=== PATIENT | female | born 1995 | race Two or more races ===

== ENCOUNTER 2022-12-07 17:49 | Emergency (ER) | payer OTHER ==
[~2022-12-07] VITALS: Ht 165.1 cm; Wt 99.8 kg
== END 2022-12-07 22:16 | disposition home or self-care (01) ==
LOC: ER 17:49
DX: B34.9 Viral infection, unspecified (principal); Z20.822 Contact with and (suspected) exposure to COVID-19

== ENCOUNTER 2023-02-16 21:55 | Emergency (ER) | payer OTHER ==
[~2023-02-16] VITALS: Ht 165.1 cm; Wt 99.8 kg
[2023-02-16] MEDS ORDERED: ZYRTEC10 M3 PO (23:30)
[2023-02-16] MEDS ORDERED: FLONASE ALLERG9.9 ML NASAL (23:30)
[2023-02-16] MEDS ORDERED: MUCINEX DM ER1 EAC1 PO (23:30)
[2023-02-16] MEDS ORDERED: ZITHROMAX500 MG PO (23:30)
[2023-02-16] MEDS ORDERED: SINUS RINSE ST1 EACH NASAL (23:30)
== END 2023-02-16 23:37 | disposition home or self-care (01) ==
LOC: ER 21:55
DX: J32.1 Chronic frontal sinusitis (principal)

== ENCOUNTER 2023-03-05 15:28 | Emergency (ER) | payer OTHER ==
[~2023-03-05] VITALS: Ht 165.1 cm; Wt 99.8 kg
[~2023-03-05 15:28] MED LIST: FLONASE ALLERG9.9 ML NASAL; MUCINEX DM ER1 EAC1 PO; SINUS RINSE ST1 EACH NASAL; ZITHROMAX500 MG PO; ZYRTEC10 M3 PO
== END 2023-03-05 16:55 | disposition home or self-care (01) ==
LOC: ER 15:28
DX: R20.2 Paresthesia of skin (principal)

== ENCOUNTER 2023-03-06 11:12 | Emergency (ER) | payer OTHER ==
[~2023-03-06] VITALS: Ht 165.1 cm; Wt 99.8 kg
== END 2023-03-06 12:07 | disposition home or self-care (01) ==
LOC: ER 11:12
DX: M54.2 Cervicalgia (principal)

== ENCOUNTER 2023-05-15 00:35 | Emergency (ER) | payer OTHER ==
[~2023-05-15] VITALS: Ht 165.1 cm; Wt 99.8 kg
[~2023-05-15 00:35] MED LIST changes: +DUI500 PO
[2023-05-15] MEDS ORDERED: MELOXICAM15 MG PO (04:22)
[2023-05-15] MEDS ORDERED: PEPCID40 MG PO (04:22)
[2023-05-15] MEDS ORDERED: NORFLEX100MG PO (04:22)
== END 2023-05-15 05:16 ==
LOC: ER 00:35
DX: M79.603 Pain in arm, unspecified (principal); R07.9 Chest pain, unspecified

== ENCOUNTER 2023-05-21 19:38 | Emergency (ER) | payer OTHER ==
[~2023-05-21] VITALS: Ht 165.1 cm; Wt 1008.3 kg
[~2023-05-21 19:38] MED LIST changes: +MELOXICAM15 MG PO; +NORFLEX100MG PO; +PEPCID40 MG PO
[2023-05-21 20:46] LABS: HEMATOCRIT 35.9 % (36.0-45.00); HEMOGLOBIN 11.5 g/dL (12.0-15.00); MEAN CELL VOLUME 79.3 fL (80.00-100.00); MEAN CORPUSCULAR HEMOGLOBIN 25.4 pg (27.00-32.0); MEAN CORPUSCULAR HGB CONC 32.1 g/dl (32.0-36.0); PLATELET COUNT 304 K/uL (150-450); RED BLOOD COUNT 4.53 M/uL (4.00-6.00); RED CELL DISTRIBUTION WIDTH 15.1 % (11.5-14.5)
[2023-05-21 21:03] LABS: INR 1.01; PARTIAL THROMBOPLASTIN TIME 25.9 SECONDS (22.0-34.0); PROTHROMBIN TIME 10.6 SECONDS (9.0-11.5)
[2023-05-21 21:04] LABS: CALCIUM 8.8 mg/dL (8.5-10.1); CREATININE SERUM 0.79 mg/dL (0.55-1.02); GFR 86.04; POTASSIUM 3.98 mEq/L (3.5-5.1)
[2023-05-21 21:17] LABS: URINE APPEARANCE Turbid; URINE BILIRRUBIN Small (NEGATIVE); URINE BLOOD Large; URINE COLOR Orange; URINE GLUCOSE Negative (NEGATIVE); URINE LEUKOCYTE Small; URINE NITRATE Negative; URINE PROTEIN 30 (NEGATIVE); URINE UROBILINOGEN 0.2 E.U./dl
[2023-05-21 21:18] LABS: URINE BACTERIA 1108.7 uL (0.0-1933); URINE WBC 188.5 uL (0.0-23.2)
[2023-05-21 21:23] LABS: URINE RBC > 10558.9 uL (0.0-20.8)
[2023-05-21] MEDS ORDERED: PYRIDIUM100 MG PO (22:33)
[2023-05-21] MEDS ORDERED: CEPHALEXIN500 MG PO (22:33)
[2023-05-21] MEDS ORDERED: DUI500 PO ×2 (22:35→22:36)
== END 2023-05-21 22:49 | disposition home or self-care (01) ==
LOC: ER 19:38
PROVIDERS: Nurse Practitioner Family
DX: N39.0 Urinary tract infection, site not specified (principal); R10.2 Pelvic and perineal pain; N93.8 Other specified abnormal uterine and vaginal bleeding

== ENCOUNTER 2023-08-20 16:01 | Emergency (ER) | payer OTHER ==
[~2023-08-20] VITALS: Ht 167.6 cm; Wt 81.6 kg
[~2023-08-20 16:01] MED LIST changes: +CEPHALEXIN500 MG PO; +PYRIDIUM100 MG PO
[2023-08-20 20:34] LABS: URINE APPEARANCE Clear; URINE BILIRRUBIN Negative (NEGATIVE); URINE BLOOD Negative; URINE COLOR Yellow; URINE GLUCOSE Negative (NEGATIVE); URINE LEUKOCYTE Moderate; URINE NITRATE Negative; URINE PROTEIN Negative (NEGATIVE); URINE UROBILINOGEN 0.2 E.U./dl
[2023-08-20 20:35] LABS: URINE BACTERIA 4147.8 uL (0.0-1933); URINE EPITHELIAL CELLS 42.5 uL (0.0-38.8); URINE RBC 3.4 uL (0.0-20.8); URINE WBC 244.5 uL (0.0-23.2)
[2023-08-20 20:36] LABS: HEMATOCRIT 36.1 % (36.0-45.00); MEAN CELL VOLUME 78.3 fL (80.00-100.00); MEAN CORPUSCULAR HGB CONC 33.3 g/dl (32.0-36.0); PLATELET COUNT 329 K/uL (150-450); RED BLOOD COUNT 4.61 M/uL (4.00-6.00); RED CELL DISTRIBUTION WIDTH 15.8 % (11.5-14.5)
[2023-08-20 20:48] LABS: URINE MUCUS MODERATE
[2023-08-20] MEDS ORDERED: BACTRIM DS TAB1 EACH PO (21:01)
== END 2023-08-20 21:30 | disposition home or self-care (01) ==
LOC: ER 16:03
PROVIDERS: Emergency Medicine
DX: N39.0 Urinary tract infection, site not specified (principal); Z20.822 Contact with and (suspected) exposure to COVID-19

== ENCOUNTER 2023-10-13 12:23 | Emergency (ER) | payer OTHER ==
[~2023-10-13] VITALS: Ht 165.1 cm; Wt 99.8 kg
[~2023-10-13 12:23] MED LIST changes: +BACTRIM DS TAB1 EACH PO
== END 2023-10-13 16:02 | disposition home or self-care (01) ==
LOC: ER 12:24
DX: J06.9 Acute upper respiratory infection, unspecified (principal); Z20.822 Contact with and (suspected) exposure to COVID-19

== ENCOUNTER 2024-04-13 18:52 | Emergency (ER) | payer OTHER ==
[~2024-04-13] VITALS: Ht 165.1 cm; Wt 99.8 kg
[2024-04-13] MEDS ORDERED: KETOROLAC TROMETHAMINE 30 MG VIAL IM STA (21:47)
[2024-04-13] MEDS ORDERED: DEXAMETHASONE SODIUM PHOSPHATE 4 MG/ML VIAL IM STA (21:48)
[2024-04-13] MEDS ORDERED: MEDROLPACK PO (21:52)
[2024-04-13] MEDS ORDERED: DICLOFENAC POTA50 MG PO (21:52)
[2024-04-13] MEDS ORDERED: NASAL MIST126 ML NASAL (21:52)
[2024-04-13] MEDS ORDERED: KETOROLAC TROMETHAMINE 30 MG VIAL ONE (21:56)
[2024-04-13] MEDS ORDERED: DEXAMETHASONE SODIUM PHOSPHATE 4 MG/ML VIAL ONE (21:56)
== END 2024-04-13 22:03 | disposition home or self-care (01) ==
LOC: ER 18:54
DX: M25.561 Pain in right knee (principal)

== ENCOUNTER 2024-05-23 00:48 | Emergency (ER) | payer OTHER ==
[~2024-05-23] VITALS: Ht 165.1 cm; Wt 59.0 kg
[~2024-05-23 00:48] MED LIST changes: +DICLOFENAC POTA50 MG PO; +MEDROLPACK PO; +NASAL MIST126 ML NASAL
[2024-05-23] MEDS ORDERED: 0.9 % SODIUM CHLORIDE 1,000 ML IV SCH (02:00)
[2024-05-23] MEDS ORDERED: KETOROLAC TROMETHAMINE 30 MG VIAL IV ONE (02:00)
[2024-05-23 02:33] LABS: PH,URINE 5.5 (5.0-8.0); URINE APPEARANCE Cloudy; URINE BILIRRUBIN Negative (NEGATIVE); URINE BLOOD Negative; URINE COLOR Yellow; URINE GLUCOSE Negative (NEGATIVE); URINE KETONE Negative (NEGATIVE); URINE LEUKOCYTE Trace; URINE NITRATE Negative; URINE PROTEIN Trace (NEGATIVE)
[2024-05-23 02:34] LABS: HEMOGLOBIN 11.3 g/dL (12.0-15.00); MEAN CELL VOLUME 79.6 fL (80.00-100.00); MEAN CORPUSCULAR HEMOGLOBIN 26.5 pg (27.00-32.0); MEAN CORPUSCULAR HGB CONC 33.3 g/dl (32.0-36.0); PLATELET COUNT 295 K/uL (150-450); RED BLOOD COUNT 4.28 M/uL (4.00-6.00); RED CELL DISTRIBUTION WIDTH 15.2 % (11.5-14.5)
[2024-05-23 02:36] LABS: URINE BACTERIA 3070.3 uL (0.0-1933); URINE EPITHELIAL CELLS 57.9 uL (0.0-38.8); URINE RBC 7.4 uL (0.0-20.8); URINE WBC 153.9 uL (0.0-23.2)
[2024-05-23 02:46] LABS: ALBUMIN 3.6 gm/dL (3.4-5.0); BILIRUBIN TOTAL 0.21 mg/dL (0.3-1.2); CREATININE SERUM 0.7 mg/dL (0.55-1.02); GFR 98.25; GLOBULINA 3.2 G/DL (2.4-3.5); POTASSIUM 4.69 mEq/L (3.5-5.1); TOTAL PROTEIN 6.8 gm/dL (6.4-8.2)
[2024-05-23 02:53] LABS: URINE CAST 1.06 uL (0.0-1.40)
[2024-05-23] MEDS ORDERED: CEFTRIAXONE SODIUM 1,000 MG VIAL IV ONE (05:15)
[2024-05-23] MEDS ORDERED: BACTRIM DS TAB1 EACH PO (05:17)
== END 2024-05-23 05:34 | disposition home or self-care (01) ==
LOC: ER 00:50
PROVIDERS: General Practice
DX: N39.0 Urinary tract infection, site not specified (principal); R10.31 Right lower quadrant pain

== ENCOUNTER 2024-05-25 14:19 | Emergency (ER) | payer OTHER ==
[~2024-05-25] VITALS: Ht 165.1 cm; Wt 104.3 kg
[2024-05-25] MEDS ORDERED: GUAIFENESIN/DEXTROMETHORPHAN 10ML BLIST.PACK PO STA (16:14)
[2024-05-25] MEDS ORDERED: DEXAMETHASONE SODIUM PHOSPHATE 4 MG/ML VIAL IM STA (16:14)
[2024-05-25] MEDS ORDERED: CETIRIZINE HCL 5 MG/5 ML ML PO STA (16:15)
[2024-05-25 16:48] LABS: HEMATOCRIT 35.3 % (36.0-45.00); HEMOGLOBIN 11.8 g/dL (12.0-15.00); MEAN CELL VOLUME 77.9 fL (80.00-100.00); MEAN CORPUSCULAR HGB CONC 33.4 g/dl (32.0-36.0); PLATELET COUNT 269 K/uL (150-450); RED BLOOD COUNT 4.52 M/uL (4.00-6.00); RED CELL DISTRIBUTION WIDTH 15.2 % (11.5-14.5)
[2024-05-25] MEDS ORDERED: MUCINEX DM ER1 EACH PO (19:15)
[2024-05-25] MEDS ORDERED: SINGULAIR10 MG PO (19:15)
[2024-05-25] MEDS ORDERED: ZYRTEC10 MG PO (19:15)
== END 2024-05-25 19:28 | disposition home or self-care (01) ==
LOC: ER 14:21
PROVIDERS: General Practice
DX: J06.9 Acute upper respiratory infection, unspecified (principal); Z20.822 Contact with and (suspected) exposure to COVID-19

== ENCOUNTER 2024-07-22 13:19 | Emergency (ER) | payer OTHER ==
[~2024-07-22] VITALS: Ht 165.1 cm; Wt 99.8 kg
[~2024-07-22 13:19] MED LIST changes: +MUCINEX DM ER1 EACH PO; +SINGULAIR10 MG PO; +ZYRTEC10 MG PO
[2024-07-22] MEDS ORDERED: MONTELUKAST SODI4 M1 PO (13:45)
[2024-07-22] MEDS ORDERED: BENZONATATE200 M1 PO (13:45)
[2024-07-22] MEDS ORDERED: PEPCID AC20 MG PO (13:45)
[2024-07-22] MEDS ORDERED: MEDROLPACK PO (13:45)
[2024-07-22] MEDS ORDERED: ZITHROMAX500 MG PO (13:45)
[2024-07-22] MEDS ORDERED: LEVALBUTER0.63 MG/3 IH (13:45)
== END 2024-07-22 14:18 | disposition home or self-care (01) ==
LOC: ER 13:21
DX: R53.81 Other malaise (principal); J00 Acute nasopharyngitis [common cold]

== ENCOUNTER 2024-10-19 03:25 | Emergency (ER) | payer OTHER ==
[~2024-10-19] VITALS: Ht 165.1 cm; Wt 108.9 kg
[~2024-10-19 03:25] MED LIST changes: +BENZONATATE200 M1 PO; +LEVALBUTER0.63 MG/3 IH; +MONTELUKAST SODI4 M1 PO; +PEPCID AC20 MG PO
[2024-10-19] MEDS ORDERED: METOCLOPRAMIDE HCL 5 MG/ML VIAL IM STA (04:10)
[2024-10-19] MEDS ORDERED: PROMETHAZINE HCL 25 MG/ML AMPUL IM STA (04:11)
[2024-10-19] MEDS ORDERED: FAMOtidine 10 MG/ML (4ML VIAL) IV PUSH STA (04:12)
[2024-10-19] MEDS ORDERED: 0.9 % SODIUM CHLORIDE 1,000 ML IV STA (04:12)
[2024-10-19] MEDS ORDERED: DIPHENOXYLATE HCL/ATROPINE 1 UDTAB TABLET PO STA (04:13)
[2024-10-19 04:43] LABS: HEMATOCRIT 39.4 % (36.0-45.00); MEAN CELL VOLUME 78.4 fL (80.00-100.00); MEAN CORPUSCULAR HEMOGLOBIN 25.8 pg (27.00-32.0); MEAN CORPUSCULAR HGB CONC 32.9 g/dl (32.0-36.0); PLATELET COUNT 280 K/uL (150-450); RED BLOOD COUNT 5.03 M/uL (4.00-6.00); RED CELL DISTRIBUTION WIDTH 15.2 % (11.5-14.5)
[2024-10-19] MEDS ORDERED: ONDANSETRON HCL 2 MG/ML VIAL IV STA (05:31)
[2024-10-19 06:31] LABS: CALCIUM 8.8 mg/dL (8.5-10.1); CREATININE SERUM 0.79 mg/dL (0.55-1.02); GFR 85.45
[2024-10-19 06:32] LABS: POTASSIUM 4.98 mEq/L (3.5-5.1)
== END 2024-10-19 07:40 | disposition home or self-care (01) ==
LOC: ER 03:25
DX: K52.9 Noninfective gastroenteritis and colitis, unspecified (principal)

== ENCOUNTER 2024-11-18 18:57 | Emergency (ER) | payer OTHER ==
[~2024-11-18] VITALS: Ht 165.1 cm; Wt 104.3 kg
[2024-11-18] MEDS ORDERED: NEURONTIN300 MG PO (22:13)
[2024-11-18] MEDS ORDERED: ORPHENADRINE CITRATE 30 MG/ML AMPUL IM ONE (22:15)
[2024-11-18] MEDS ORDERED: KETOROLAC TROMETHAMINE 60 MG VIAL IM ONE ×2 (22:15→22:18)
[2024-11-18] MEDS ORDERED: ORPHENADRINE CITRATE 30 MG/ML AMPUL ONE (22:18)
== END 2024-11-18 22:31 | disposition home or self-care (01) ==
LOC: ER 18:58
DX: M25.512 Pain in left shoulder (principal); J45.909 Unspecified asthma, uncomplicated
CPT/HCPCS: 72125; 96372; 99284; J1885; J2360

== ENCOUNTER 2025-01-20 00:07 | Emergency (ER) | payer OTHER ==
[~2025-01-20] VITALS: Ht 165.1 cm; Wt 108.9 kg
[~2025-01-20 00:07] MED LIST changes: +NEURONTIN300 MG PO
[2025-01-20] MEDS ORDERED: DIPHENHYDRAMINE HCL 12.5 MG/5 ML BLIST.PACK PO STA (02:29)
[2025-01-20] MEDS ORDERED: GUAIFENESIN 200 MG/10 ML BLIST.PACK PO STA (02:29)
[2025-01-20] MEDS ORDERED: ACETAMINOPHEN 500 MG GEL..CAP PO STA (02:29)
[2025-01-20] MEDS ORDERED: DIPHENHYDRAMINE HCL 12.5 MG/5 ML BLIST.PACK PO ONE (02:36)
[2025-01-20] MEDS ORDERED: ACETAMINOPHEN 500 MG GEL..CAP PO ONE (02:36)
[2025-01-20] MEDS ORDERED: GUAIFENESIN 200 MG/10 ML BLIST.PACK PO ONE (02:37)
[2025-01-20 03:08] LABS: BASO % 0.6 % (0.1-1.2); EOS # 0.31 (0.04-0.54); EOS % 3.9 % (0.7-7.0); HEMATOCRIT 34.5 % (34.1-44.9); HEMOGLOBIN 11.2 g/dL (11.2-15.7); LYMPH # 2.89 (1.18-3.74); LYMPH % 35.9 % (19.3-53.1); MEAN CORPUSCULAR HEMOGLOBIN 25.5 pg (25.6-32.2); MONO # 1.04 (0.24-0.82); NEUT # 3.75 (1.56-6.13); NEUT % 46.6 % (34.0-71.1); PLATELET COUNT 274 K/uL (163-369); RED BLOOD COUNT 4.39 M/uL (3.93-5.22); RED CELL DISTRIBUTION WIDTH 14.2 % (11.6-14.4)
[2025-01-20 03:15] LABS: MONO % 12.9 % (4.7-12.5)
[2025-01-20 03:47] LABS: COVID-19 AG NEGATIVE (NEGATIVE); INFLUENZA A AG NEGATIVE (NEGATIVE); INFLUENZA B AG NEGATIVE (NEGATIVE)
[2025-01-20] MEDS ORDERED: DOLOGESIC-DF 51 EACH PO (04:46)
[2025-01-20] MEDS ORDERED: PHENAGIL TABLE1 EACH PO (04:46)
[2025-01-20] MEDS ORDERED: ZYNCOF 20-400120 ML PO (04:46)
== END 2025-01-20 04:52 ==
LOC: ER 00:19
PROVIDERS: General Practice
DX: B34.9 Viral infection, unspecified (principal); Z20.822 Contact with and (suspected) exposure to COVID-19

== ENCOUNTER 2025-04-04 18:31 | Emergency (ER) | payer OTHER ==
[~2025-04-04] VITALS: Ht 165.1 cm; Wt 104.3 kg
[~2025-04-04 18:31] MED LIST changes: +DOLOGESIC-DF 51 EACH PO; +PHENAGIL TABLE1 EACH PO; +ZYNCOF 20-400120 ML PO
[2025-04-04] MEDS ORDERED: BUTALB/ACETAMINOPHEN/CAFFEINE 1 TAB TABLET PO ONE (20:30)
[2025-04-04 20:41] LABS: BASO % 0.3 % (0.1-1.2); EOS # 0.21 (0.04-0.54); EOS % 2.3 % (0.7-7.0); LYMPH # 3.27 (1.18-3.74); LYMPH % 35.8 % (19.3-53.1); MEAN PLATELET VOLUME 9.70 fl (9.4-12.4); MONO # 0.73 (0.24-0.82); MONO % 8.0 % (4.7-12.5); NEUT # 4.88 (1.56-6.13); NEUT % 53.5 % (34.0-71.1); RED CELL DISTRIBUTION WIDTH 14.5 % (11.6-14.4)
[2025-04-04 21:14] LABS: BUN CREA RATIO 12.0 (7.0-25.0); CREATININE SERUM 0.76 mg/dL (0.55-1.02); GFR 88.76; GLUCOSE FASTING 92.0 mg/dL (65-100); OSMOLALITY SERUM 283.0 MOSM/KG (275-295)
[2025-04-04 21:31] LABS: COVID-19 AG NEGATIVE (NEGATIVE)
== END 2025-04-04 22:52 | disposition home or self-care (01) ==
LOC: ER 18:31
PROVIDERS: Emergency Medicine
DX: B34.9 Viral infection, unspecified (principal); R51.9 Headache, unspecified; R53.1 Weakness; Z20.822 Contact with and (suspected) exposure to COVID-19

== ENCOUNTER 2025-04-25 09:32 | Emergency (ER) | payer OTHER ==
[~2025-04-25] VITALS: Ht 165.1 cm; Wt 113.4 kg
[2025-04-25] MEDS ORDERED: KETOROLAC TROMETHAMINE 60 MG VIAL IM ONE (10:45)
[2025-04-25] MEDS ORDERED: ORPHENADRINE CITRATE 30 MG/ML AMPUL IM ONE (10:45)
== END 2025-04-25 12:12 ==
LOC: ER 09:32
DX: M62.838 Other muscle spasm (principal)

== ENCOUNTER → 2025-06-13 | Emergency (ER) | payer OTHER ==
[~2025-06-13] MED LIST changes: +CIPRO500 MG PO
== END | disposition home or self-care (01) ==
LOC: ER 19:04
DX: R10.21 Pelvic and perineal pain right side (principal); N39.0 Urinary tract infection, site not specified; Z20.822 Contact with and (suspected) exposure to COVID-19

== ENCOUNTER 2025-06-14 21:29 | Emergency (ER) | payer OTHER ==
[~2025-06-14] VITALS: Ht 165.1 cm; Wt 108.9 kg
[~2025-06-14 21:29] MED LIST changes: -CIPRO500 MG PO
[2025-06-14] MEDS ORDERED: ONDANSETRON HCL 2 MG/ML VIAL IV ONE (22:30)
[2025-06-14] MEDS ORDERED: KETOROLAC TROMETHAMINE 30 MG VIAL IV ONE (22:30)
[2025-06-14] MEDS ORDERED: DEXAMETHASONE SODIUM PHOSPHATE 4 MG/ML VIAL IV ONE (22:30)
[2025-06-14] MEDS ORDERED: 0.9 % SODIUM CHLORIDE 500 ML IV SCH (22:30)
[2025-06-14] MEDS ORDERED: FAMOTIDINE/PF 20 MG/2 ML VIAL IV ONE (22:30)
[2025-06-14] MEDS ORDERED: DEXAMETHASONE SODIUM PHOSPHATE 4 MG/ML VIAL ONE (23:25)
[2025-06-14] MEDS ORDERED: ONDANSETRON HCL 2 MG/ML VIAL ONE (23:25)
[2025-06-14] MEDS ORDERED: FAMOTIDINE/PF 20 MG/2 ML VIAL ONE (23:25)
[2025-06-14] MEDS ORDERED: KETOROLAC TROMETHAMINE 30 MG VIAL ONE (23:25)
[2025-06-14 23:44] LABS: URINE APPEARANCE Cloudy; URINE BILIRRUBIN Negative (NEGATIVE); URINE BLOOD Negative; URINE COLOR Yellow; URINE GLUCOSE Negative (NEGATIVE); URINE KETONE Trace (NEGATIVE); URINE LEUKOCYTE Moderate; URINE NITRATE Negative; URINE PROTEIN Trace (NEGATIVE); URINE UROBILINOGEN 1.0 E.U./dl
[2025-06-14 23:47] LABS: URINE BACTERIA 3027.4 uL (0.0-1933); URINE EPITHELIAL CELLS 83.3 uL (0.0-38.8); URINE RBC 3.2 uL (0.0-20.8); URINE WBC 124.4 uL (0.0-23.2)
[2025-06-14 23:59] LABS: URINE CAST 0.14 uL (0.0-1.40)
[2025-06-15 00:32] LABS: BASO % 0.3 % (0.1-1.2); EOS # 0.15 (0.04-0.54); EOS % 1.5 % (0.7-7.0); LYMPH # 3.55 (1.18-3.74); LYMPH % 36.0 % (19.3-53.1); MEAN PLATELET VOLUME 10.10 fl (9.4-12.4); MONO # 0.88 (0.24-0.82); MONO % 8.9 % (4.7-12.5); NEUT # 5.23 (1.56-6.13); NEUT % 53.1 % (34.0-71.1); RED CELL DISTRIBUTION WIDTH 14.0 % (11.6-14.4)
[2025-06-15 00:38] LABS: ERYTHROCYTE SEDIMENTATION RATE 16 mm/hr (0-20)
[2025-06-15 01:35] LABS: INR 0.97
[2025-06-15 01:40] LABS: ALT/SGPT 31.0 U/L (12-78); AST/SGOT 22.0 U/L (15-37); BILIRUBIN TOTAL 0.19 mg/dL (0.3-1.2); BUN CREA RATIO 19.0 (7.0-25.0); CREATININE SERUM 0.58 mg/dL (0.55-1.02); GFR 121.25; GLOBULINA 3.4 G/DL (2.4-3.5); GLUCOSE FASTING 99.0 mg/dL (65-100); OSMOLALITY SERUM 284.0 MOSM/KG (275-295)
[2025-06-15] MEDS ORDERED: CIPRO500 MG PO (05:26)
[2025-06-15] MEDS ORDERED: DOLOGESIC-DF 51 EACH PO ×2 (05:28)
[2025-06-15] MEDS ORDERED: KETOROLAC TROMETHAMINE 30 MG VIAL IV STA (05:31)
[2025-06-15] MEDS ORDERED: CEFTRIAXONE SODIUM 1,000 MG VIAL IV STA (05:31)
[2025-06-15] MEDS ORDERED: KETOROLAC TROMETHAMINE 30 MG VIAL ONE (05:31)
[2025-06-15] MEDS ORDERED: CEFTRIAXONE SODIUM 1,000 MG VIAL ONE (05:32)
[2025-06-15 05:45] VITALS: BP 110/75; O2SAT 98
== END 2025-06-15 05:47 ==
LOC: ER 21:29
DX: N39.0 Urinary tract infection, site not specified (principal)

== ENCOUNTER 2025-07-13 13:15 | Emergency (ER) | payer OTHER ==
[~2025-07-13] VITALS: Ht 165.1 cm; Wt 108.9 kg
[~2025-07-13 13:15] MED LIST changes: +CIPRO500 MG PO
[2025-07-13] MEDS ORDERED: ORPHENADRINE CITRATE 30 MG/ML AMPUL ONE (15:39)
[2025-07-13] MEDS ORDERED: ACETAMINOPHEN 500 MG GEL..CAP PO ONE ×2 (15:39→15:45)
[2025-07-13] MEDS ORDERED: ORPHENADRINE CITRATE 30 MG/ML AMPUL IM ONE (15:45)
[2025-07-13 16:01] LABS: BASO % 0.3 % (0.1-1.2); EOS # 0.15 (0.04-0.54); EOS % 1.6 % (0.7-7.0); LYMPH # 3.41 (1.18-3.74); LYMPH % 37.0 % (19.3-53.1); MEAN PLATELET VOLUME 9.30 fl (9.4-12.4); MONO # 0.75 (0.24-0.82); MONO % 8.1 % (4.7-12.5); NEUT # 4.85 (1.56-6.13); NEUT % 52.8 % (34.0-71.1); RED CELL DISTRIBUTION WIDTH 13.8 % (11.6-14.4)
[2025-07-13 16:28] LABS: ALT/SGPT 20.0 U/L (12-78); AST/SGOT 10.0 U/L (15-37); BILIRUBIN TOTAL 0.47 mg/dL (0.3-1.2); BUN CREA RATIO 11.0 (7.0-25.0); CREATININE SERUM 0.76 mg/dL (0.55-1.02); GFR 88.76; GLOBULINA 3.9 G/DL (2.4-3.5); GLUCOSE FASTING 103.0 mg/dL (65-100); OSMOLALITY SERUM 282.0 MOSM/KG (275-295)
[2025-07-13] MEDS ORDERED: NORFLEX100MG PO (17:49)
[2025-07-13] MEDS ORDERED: KETOROLAC TROMETHAMINE 30 MG VIAL IV ONE (18:00)
[2025-07-13] MEDS ORDERED: KETOROLAC TROMETHAMINE 30 MG VIAL ONE (18:12)
== END 2025-07-13 20:40 ==
LOC: ER 13:15
PROVIDERS: General Practice
DX: M94.0 Chondrocostal junction syndrome [Tietze] (principal); R07.89 Other chest pain; R51.9 Headache, unspecified; R20.2 Paresthesia of skin; R00.2 Palpitations; F41.8 Other specified anxiety disorders; Z87.09 Personal history of other diseases of the respiratory system